=== PATIENT | female | born 1970 | race Native Hawaiian/Other Pacific Islander ===

== ENCOUNTER 2017-01-17 18:35 | Outpatient (CLI) | payer OTHER | END 2017-01-17 18:39 | disposition short-term general hospital (02) | LOC: AMB 18:35 | DX: S52.91XA Unspecified fracture of right forearm, initial encounter for closed fracture (principal); R22.41 Localized swelling, mass and lump, right lower limb; M79.671 Pain in right foot; V53.5XXA Driver of pick-up truck or van injured in collision with car, pick-up truck or van in traffic accident, initial encounter; Y92.488 Other paved roadways as the place of occurrence of the external cause | CPT/HCPCS: A0425; A0427 ==

== ENCOUNTER 2020-02-25 09:46 | Emergency (ER) | payer OTHER ==
[~2020-02-25] VITALS: Ht 157.5 cm; Wt 68.0 kg
[2020-02-25 09:46] VITALS: TEMP 98.6
[2020-02-25] MEDS ORDERED: LISI20TA11 PO (10:10)
[2020-02-25] MEDS ORDERED: METO50TA63 PO (10:11)
[2020-02-25] MEDS ORDERED: MOBIC15 MG PO (10:13)
[2020-02-25 10:31] LABS: PLATELET COUNT 375 K/uL (152-353)
[2020-02-25 10:44] LABS: POTASSIUM 3.6 mmol/L (3.6-5.2)
[2020-02-25 12:00] VITALS: BP 137/78
== END 2020-02-25 12:14 | disposition home or self-care (01) ==
LOC: ED 10:02
PROVIDERS: Emergency Medicine Emergency Medical Services
DX: K52.89 Other specified noninfective gastroenteritis and colitis (principal); M54.5 Low back pain
CPT/HCPCS: 36415; 80053; 81000; 82150; 83690; 85027; 96360; 96375; 99284; J1885; J2405; J3490